=== PATIENT | male | born 1990 | race African-American/Black ===

== ENCOUNTER 2019-09-08 18:26 | Emergency (ER) | payer SELFPAY ==
--- NOTE | 2019-09-08 18:56 | CT ---
CT OF THE BRAIN WITHOUT CONTRAST: 09/08/[address] shows normal sized ventricles with no shift. No intracranial bleeding or extra-axial hematoma was seen. There is no sign of mass, edema, or stroke. The skull appears intact with no sign of fracture. The visible paranasal sinuses are clear. IMPRESSION: No acute intracranial findings. POS: HOME
[2019-09-08] MEDS ORDERED: Acetaminophen 500 MG TAB ONE (18:57)
--- NOTE | 2019-09-08 18:59 | CT ---
CT OF THE FACIAL BONES: 09/08/[address] was done following trauma. No fractures were noted. The orbital rims, zygomatic arch es, nasal bones and mandible all appear intact. The retro-orbital areas appear normal. Incidentally n oted was a small polyp or retention cyst in the left maxillary sinus measuring about 1.1 cm in size. IMPRESSION: No acute traumatic finding. All scan reports called to Dr. Price at 1846 on 09/08/2019. POS: HOME
[2019-09-08] MEDS ORDERED: traMADol HCl 50 MG TAB ONE (19:09)
== END 2019-09-08 19:16 | disposition home or self-care (01) ==
LOC: BURERS 18:26
DX: S06.9X1A Unspecified intracranial injury with loss of consciousness of 30 minutes or less, initial encounter (principal); S00.83XA Contusion of other part of head, initial encounter; F17.210 Nicotine dependence, cigarettes, uncomplicated; Y04.0XXA Assault by unarmed brawl or fight, initial encounter
CPT/HCPCS: 70450; 70486

== ENCOUNTER 2020-05-07 18:44 | Emergency (ER) | payer SELFPAY ==
[2020-05-07 20:27] LABS: Bilirubin Negative (Negative); Blood, Urine Negative (Negative); Clarity Clear (Clear); Glucose, Urine (Dipstick) Negative (Negative); Ketone, Urine Negative (Negative); Leukocyte Negative (Negative); Nitrite Negative (Negative); Protein, Urine (Dipstick) Negative (Neg-Trace); Urobilinogen 0.2 mg/dL (Less than 2)
[2020-05-07 20:33] LABS: THC/Cannabinoid Screen Not Detected (NotDetected)
[2020-05-07 20:34] LABS: Amphetamine Not Detected (NotDetected); Barbiturates Screen Not Detected (NotDetected); Benzodiazepine Screen Not Detected (NotDetected); Cocaine Metabolite Screen Not Detected (NotDetected); Medtox Control Line Valid? VALID (VALID); Methadone Not Detected (NotDetected); Methamphetamine Not Detected (NotDetected); Opiate Screen Not Detected (NotDetected); Oxycodone Screen Not Detected (NotDetected); Phencyclidine (PCP) Not Detected (NotDetected); Tricyclic Screen Not Detected (NotDetected)
[2020-05-07 20:40] LABS: Specific Gravity, Urine 1.002 (1.005-1.030)
[2020-05-07 20:43] LABS: ALT (SGPT) 27 U/L (8-55); AST (SGOT) 25 U/L (5-34); Albumin 4.4 g/dL (3.5-5.0); Alkaline Phosphatase 66 U/L (40-110); Anion Gap 18 mmol/L (10-20); BUN (Urea Nitrogen) 13 mg/dL (8.9-20.6); Calc. Creatinine Clearance 0 mL/min (70-130); Calcium 9.3 mg/dL (7.8-10.44); Carbon Dioxide 20 mmol/L (22-29); Chloride 102 mmol/L (98-107); Globulin 3.5 g/dL (2.4-3.5); Glucose 91 mg/dL (70-105); Potassium 3.5 mmol/L (3.5-5.1); Protein, Total 7.9 g/dL (6.0-8.3); Sodium 136 mmol/L (136-145)
[2020-05-07 20:47] LABS: Band 2 % (5-11); Eosinophils 1 % (0-10); Hemoglobin 17.6 g/dL (14.0-18.0); Large Platelets SLIGHT; Lymphocytes 20 % (21-51); MDiff Complete? YES; Mean Corpuscular HGB CONC 32.9 g/dL (32.0-36.0); Mean Platelet Volume 11.5 fL (7.4-10.4); Monocytes 8 % (0-10); Neutrophil 68 % (42-75); Platelet Count 169 thou/uL (130-400); Platelet Morphology Comment Appears Adequate; RBC Distribution Width 12.8 % (11.5-14.5); RBC Morphology Normal; Red Blood Cell (RBC) Count 6.05 mill/uL (4.70-6.10); White Blood Cell (WBC) Count 15.8 thou/uL (4.8-10.8)
--- NOTE | 2020-05-07 21:57 | RAD ---
PORTABLE CHEST: Date: 05-07-2020 FINDINGS: An AP portable film at 2040 shows a normal sized heart and clear lungs. No infiltrate or effusion was seen. There is no vascular congestion or edema. IMPRESSION: No acute thoracic finding. POS: HOME
== END 2020-05-07 22:09 | disposition home or self-care (01) ==
LOC: BURERS 18:44
DX: R07.89 Other chest pain (principal); R06.02 Shortness of breath; F17.210 Nicotine dependence, cigarettes, uncomplicated
CPT/HCPCS: 36415; 71045; 80053; 80306; 81003; 82550; 84484; 85025; 85379; 93005